=== PATIENT | male | born 1980 | race African-American/Black ===

== ENCOUNTER 2016-11-10 17:20 | Emergency (ER) | payer SELFPAY ==
[2016-11-10] MEDS ORDERED: ALBUTEROL SULFATE HFA (90 MCG/PUFF) 8 GM MDI (1 MDI/ER DISP) IH ONE (17:55)
--- NOTE | 2016-11-10 18:35 | ER Document Report ---
ED General - General Chief Complaint: Headache Stated Complaint: HEADACHE Time Seen by Provider: 11/10/16 17:42 Notes: Patient states she has noticed for the last 2 or 3 days and every time he cuts grass he is very congested and somewhat short of breath. He states he is concerned he may be having an allergic reaction. 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 No vomiting or diarrhea. He has had a dry cough as well. Symptoms been mild to moderate. They do improve once he is away from the graft. There is no known radiation of the symptoms. They seem to be exacerbated by being near grass and better when he is not near. TRAVEL OUTSIDE OF THE [place] IN LAST 30 DAYS: No - Related Data Allergies/Adverse Reactions: No Known Allergies Allergy (Unverified 11/10/16 17:24) Past Medical History - General Information source: Patient - Social History Smoking Status: Current Every Day Smoker Chew tobacco use (# tins/day): No Frequency of alcohol use: None Drug Abuse: None Family History: Reviewed & Not Pertinent Renal/ Medical History: Denies: Hx Peritoneal Dialysis Surgical Hx: Negative - Immunizations Hx Diphtheria, Pertussis, Tetanus Vaccination: No Review of Systems - Review of Systems Constitutional: denies: Malaise, Weakness EENT: Nose pain, Nose congestion Cardiovascular: denies: Chest pain, Palpitations Respiratory: Cough, Short of breath, Sputum Skin: denies: Lesions, Rash -: Yes All other systems reviewed and negative Physical Exam - Vital signs Vitals: Temp Pulse Resp BP Pulse Ox 98.9 F 95 18 134/88 H 95 11/10/16 17:23 11/10/16 17:23 11/10/16 17:23 11/10/16 17:23 11/10/16 17:23 Interpretation: Normal - General General appearance: Appears well, Alert - HEENT Head: Normocephalic, Atraumatic Eyes: Normal Pupils: PERRL - Respiratory Respiratory status: No respiratory distress Chest status: Nontender Breath sounds: Wheezing - Mild, expiratory, at the bases Chest palpation: Normal - Cardiovascular Rhythm: Regular Heart sounds: Normal auscultation Murmur: No - Abdominal Inspection: Normal Distension: No distension Bowel sounds: Normal Tenderness: Nontender Organomegaly: No organomegaly - Back Back: Normal, Nontender - Extremities General upper extremity: Normal inspection, Nontender, Normal color, Normal ROM , Normal temperature General lower extremity: Normal inspection, Nontender, Normal color, Normal ROM , Normal temperature, Normal weight bearing. No: Shyam's sign - Neurological Neuro grossly intact: Yes Cognition: Normal Orientation: AAOx4 Chriss Coma Scale Eye Opening: Spontaneous Chriss Coma Scale Verbal: Oriented [place] Coma Scale Motor: Obeys Commands [place] Coma Scale Total: 15 Speech: Normal Motor strength normal: LUE, RUE, LLE, RLE Sensory: Normal - Psychological Associated symptoms: Normal affect, Normal mood - Skin Skin Temperature: Warm Skin Moisture: Dry Skin Color: Normal Course - Re-evaluation Re-evalutation: 11/10/16 18:31 Patient received MDI albuterol here and has had improvement of symptoms. - Vital Signs Vital signs: Temp Pulse Resp BP Pulse Ox 98.9 F 95 18 134/88 H 95 11/10/16 17:23 11/10/16 17:23 11/10/16 17:23 11/10/16 17:23 11/10/16 17:23 - Diagnostic Test Radiology reviewed: Image reviewed - no Evidence of infiltrate or edema Discharge - Discharge Clinical Impression: Allergic reaction Condition: Stable Disposition: HOME, SELF-CARE Instructions: Hay Fever ([facility]) Additional Instructions: Call your primary doctor as soon as possible for a recheck. If symptoms persist your going to have to find a working environment that does not expose you to the grass. Prescriptions: Loratadine/Pseudoephedrine Sul [Claritin-D 24 Hour Tablet] 1 tab PO DAILY #10 tab.sr.24h Prednisone [Deltasone 20 mg Tablet] 3 tab PO DAILY 5 Days Referrals: DOROTHEA YAN MD [ACTIVE STAFF] - Follow up as needed
--- NOTE | 2016-11-10 19:03 | RADIOLOGY REPORT (SQ) ---
EXAM DESCRIPTION: CHEST PA/LAT COMPLETED DATE/TIME: 11/10/2016 6:08 pm REASON FOR STUDY: sob COMPARISON: None. EXAM PARAMETERS: NUMBER OF VIEWS: two views TECHNIQUE: Digital Frontal and Lateral radiographic views of the chest acquired. RADIATION DOSE: NA LIMITATIONS: none FINDINGS: LUNGS AND PLEURA: No opacities, masses or pneumothorax. No pleural effusion. MEDIASTINUM AND HILAR STRUCTURES: No masses or contour abnormalities. HEART AND VASCULAR STRUCTURES: Heart normal size. No evidence for failure. BONES: No acute findings. HARDWARE: None in the chest. OTHER: No other significant finding. IMPRESSION: NO SIGNIFICANT RADIOGRAPHIC FINDING IN THE CHEST. TECHNICAL DOCUMENTATION: JOB ID: [id number] All Rights Reserved
[2016-11-10 19:08] VITALS: BP 122/72
== END 2016-11-10 19:08 | disposition home or self-care (01) ==
LOC: ER 17:20
DX: T78.40XA Allergy, unspecified, initial encounter (principal); R51 Headache; X58.XXXA Exposure to other specified factors, initial encounter; F17.200 Nicotine dependence, unspecified, uncomplicated
CPT/HCPCS: 99283; 71020; J3490